=== PATIENT | female | born 1990 | race Caucasian/White ===

== ENCOUNTER 2017-02-27 03:53 | Emergency (ER) | payer MEDICAID ==
[~2017-02-27] VITALS: Ht 157.5 cm; Wt 65.8 kg
[~2017-02-27 03:53] MED LIST: AZIT250T94 PO; CETI10CA PO; TRIA15CR55 TOP
[2017-02-27 04:00] VITALS: Ht 157.5 cm; Wt 65.8 kg
--- NOTE | 2017-02-27 04:49 | ERD ---
ER Documentation Chief Complaint Chief Complaint pt fell this AM coming home from a green party- skin abrasion on mikey legs; R arm HPI 26-year-old female presents here to emergency department for complaints of right elbow pain, right knee pain, right buttock pain after falling out, patient was burning, went out of the bar, dizzy and fell landed on the right buttock right elbow and right knee. Patient's complaint of pain throbbing pain, 6/10 scale, not better or worse with anything. Patient did not take any medications to help with symptoms. Patient is drinking alcohol tonight. ROS All systems reviewed and are negative except as per history of present illness. Medications Home Meds Active Scripts Azithromycin* (Zithromax*) 250 Mg Tablet, 250 MG PO .ZPACK DIRECTED, #6 TAB TAKE 500 MG (2 TABS) THE FIRST DAY THEN 250 MG (1 TAB) DAYS 2-5 Prov:DIANA CULLEN MD 11/06/15 Cetirizine Hcl* (Zyrtec*) 10 Mg Capsule, 10 MG PO DAILY for 14 Days, TAB Prov:DIANA CULLEN MD 11/06/15 Triamcinolone Acetonide (Triamcinolone Acetonide) 0.1% - 15 Gm Cream.gm., 1 APPLIC TOP QID for 10 Days, #1 TUB Prov:DIANA CULLEN MD 11/06/15 Allergies Allergies: Coded Allergies: No Known Allergy (Unverified , 12/08/13) PMhx/Soc History of Surgery: Yes (appendix) Anesthesia Reaction: No Hx Neurological Disorder: No Hx Respiratory Disorders: No Hx Cardiac Disorders: No Hx Psychiatric Problems: No Hx Miscellaneous Medical Probl: No Hx Alcohol Use: No Hx Substance Use: No Hx Tobacco Use: Yes (1 cig/day) Smoking Status: Current some day smoker FmHx Family History: No coronary disease, No diabetes, No other Physical Exam Vitals Vital Signs Date Time Temp Pulse Resp B/P Pulse Ox O2 Delivery O2 Flow Rate FiO2 02/27/17 04:00 100.1 97 20 118/83 98 Physical Exam GENERAL: The patient is well developed and appropriate for usual state of health, in no apparent distress. CHEST: Clear to auscultation bilaterally. There are no rales, wheezes or rhonchi. HEART: Regular rate and rhythm. No murmurs, clicks, rubs or gallops. No S3 or S4. ABDOMEN: Soft, nontender and nondistended. Good bowel sounds. No rebound or guarding. No gross peritonitis. No gross organomegaly or masses. No Ordonez sign or McBurney point tenderness. BACK: No midline or flank tenderness. EXTREMITIES: Tenderness on palpation on the right elbow, noted effusion ecchymosis, limited movement of the right elbow because of pain and swelling. Mild deformity noted. Noted right knee with abrasion and ecchymosis, able to do full range of motion without any restriction. Noted abrasion and ecchymosis on the right buttock area, able to do full range of motion of the right hip without any restriction. Equal pulses bilaterally. There is no peripheral clubbing, cyanosis or edema. No focal swelling or erythema. Full range of motion. Grossly neurovascularly intact. NEURO: Alert and oriented. Cranial nerves 2-12 intact. Motor strength in all 4 extremities with 5/5 strength. Sensation grossly intact. Normal speech and gait. SKIN: There is no apparent rash or petechia. The skin is warm and dry. HEMATOLOGIC AND LYMPHATIC: There is no evidence of excessive bruising or lymphedema. No gross cervical, axillary, or inguinal lymphadenopathy. Results 24 hrs PROCEDURE: XR Elbow. CLINICAL INDICATION: Right elbow pain following injury TECHNIQUE: 3 views of the right elbow are available for review COMPARISON: None available FINDINGS: The osseous structures demonstrate normal alignment and mineralization. No acute fracture or dislocation is identified. There is no posterior fat pad sign identified to indicate presence of a joint effusion. There is diffuse soft tissue edema and small focus of subcutaneous emphysema along the lateral margin of the elbow. IMPRESSION: 1. No acute fracture identified. 2. Diffuse soft tissue edema and small focus of subcutaneous emphysema along the lateral margin of the elbow. RPTAT: HH .Mel Cameron MD, Date Time Electronically viewed and signed by .Mel Cameron MD, on 02/27/2017 05 :21 .G/ CC: YANI OAKLEY [employer] PROCEDURE: XR Hip. CLINICAL INDICATION: Right hip pain status post fall. TECHNIQUE: AP and frog lateral views of the right hip were performed. COMPARISON: Left hip x-rays performed concurrently FINDINGS: The osseous structures demonstrate normal alignment and mineralization. No acute fracture is identified. The femoral head demonstrates a normal, round contour with adequate coverage by the acetabulum. The physis is normal in appearance. There is no evidence of slippage of the femoral head. The right sacroiliac joint is grossly unremarkable. An IUD is seen within the pelvis. IMPRESSION: Unremarkable right hip x-rays series. RPTAT: HH .Mel Cameron MD, MD Date Time Electronically viewed and signed by .Mel Cameron MD, on 02/27/2017 05 :23 .G/ PROCEDURE: XR Knee. CLINICAL INDICATION: Fall. Knee pain. TECHNIQUE: 3 views of the right knee were obtained including AP, cross-table lateral, and tunnel views. The images reviewed on a PACS workstation. COMPARISON: None. FINDINGS: No fracture, dislocation, and/or effusion is seen. No significant degenerative change. No definite abnormal calcifications or other soft tissue abnormality. IMPRESSION: No definite acute bony abnormality. RPTAT: [facility] Physician Sid Date Time Electronically viewed and signed by Physician Sid on 02/27/2017 05 :23 LE/ CC: YANI OAKLEY [employer] Procedures/[facility] Medical Decision Making: Patient's pain is most likely consistent with a right knee contusion elbow contusion in the right hip contusion. There is no suspicion for neurovascular compromise. Patient has intact sensation and circulation of the affected extremity. There is low suspicion for septic arthritis. Patient does not have any fever. Radiology exams of the affected area does not show any fracture or dislocation. Disposition: Home. Patient is given prescription for ibuprofen for pain, [place] for severe pain. Patient was advised to elevate the affected area and apply ice on affected area. Patient was advised that if symptoms are worse, numbness, tingling, high fever, unable to move joint, worsening symptoms, to return to emergency department immediately. Otherwise, patient is advised to follow up with the primary care doctor in 5-7 days for reevaluation of symptoms. Disclaimer: Inadvertent spelling and grammatical errors are likely due to EHR/ dictation software use and do not reflect on the overall quality of patient care. Also, please note that the electronic time recorded on this note does not necessarily reflect the actual time of the patient encounter. Departure Diagnosis: Primary Impression: Contusion of hip Encounter type: initial encounter Laterality: right Qualified Code: S70.01XA - Contusion of right hip, initial encounter Additional Impressions: Knee contusion Encounter type: initial encounter Laterality: right Qualified Code: S80.01XA - Contusion of right knee, initial encounter Elbow contusion Encounter type: initial encounter Laterality: right Qualified Code: S50.01XA - Contusion of right elbow, initial encounter Condition: Stable Patient Instructions: Contusion, Elbow, Hip Contusion, Knee Pain, Uncertain Cause Additional Instructions: Patient is given prescription for ibuprofen for pain, [place] for severe pain. Patient was advised to elevate the affected area and apply ice on affected area. Patient was advised that if symptoms are worse, numbness, tingling, high fever, unable to move joint, worsening symptoms, to return to emergency department immediately. Otherwise, patient is advised to follow up with the primary care doctor in 5-7 days for reevaluation of symptoms. YANI OAKLEY NP Feb 27, 2017 04:49
--- NOTE | 2017-02-27 05:21 | RADRPT ---
PROCEDURE: XR Elbow. CLINICAL INDICATION: Right elbow pain following injury TECHNIQUE: 3 views of the right elbow are available for review COMPARISON: None available FINDINGS: The osseous structures demonstrate normal alignment and mineralization. No acute fracture or disloc ation is identified. There is no posterior fat pad sign identified to indicate presence of a joint effusion. There is diffuse soft tissue edema and small focus of subcutaneous emphysema along the lat eral margin of the elbow. IMPRESSION: 1. No acute fracture identified. 2. Diffuse soft tissue edema and small focus of subcutaneous emphysema along the lateral margin of the elbow. RPTAT: HH .Mel Cameron MD, MD Date Time Electronically viewed and signed by .Mel Cameron MD, MD on 02/27/2017 05:21 .G/
--- NOTE | 2017-02-27 05:23 | RADRPT ---
PROCEDURE: XR Hip. CLINICAL INDICATION: Right hip pain status post fall. TECHNIQUE: AP and frog lateral views of the right hip were performed. COMPARISON: Left hip x-rays performed concurrently FINDINGS: The osseous structures demonstrate normal alignment and mineralization. No acute fracture is identi fied. The femoral head demonstrates a normal, round contour with adequate coverage by the acetabulum . The physis is normal in appearance. There is no evidence of slippage of the femoral head. The [facility] sacroiliac joint is grossly unremarkable. An IUD is seen within the pelvis. IMPRESSION: Unremarkable right hip x-rays series. RPTAT: HH .Mel Cameron MD, MD Date Time Electronically viewed and signed by .Mel Cameron MD, on 02/27/2017 05:23 .G/
--- NOTE | 2017-02-27 05:23 | RADRPT ---
PROCEDURE: XR Knee. CLINICAL INDICATION: Fall. Knee pain. TECHNIQUE: 3 views of the right knee were obtained including AP, cross-table lateral, and tunnel v iews. The images reviewed on a PACS workstation. COMPARISON: None. FINDINGS: No fracture, dislocation, and/or effusion is seen. No significant degenerative change. No definite abnormal calcifications or other soft tissue abnormality. IMPRESSION: No definite acute bony abnormality. RPTAT: [facility] Physician Sid Date Time Electronically viewed and signed by Physician Sid on 02/27/2017 05:23 LE/
[2017-02-27] MEDS ORDERED: IBUP-1542 PO (05:31)
[2017-02-27] MEDS ORDERED: HYDR-906 PO (05:31)
[2017-02-27 05:38] VITALS: BP 108/66; PULSE 85; RESP 17; TEMP 98.2
== END 2017-02-27 05:38 | disposition home or self-care (01) ==
LOC: FTE 03:53
DX: S70.01XA Contusion of right hip, initial encounter (principal); S80.01XA Contusion of right knee, initial encounter; S50.01XA Contusion of right elbow, initial encounter; F17.210 Nicotine dependence, cigarettes, uncomplicated; W18.39XA Other fall on same level, initial encounter; Y92.9 Unspecified place or not applicable
CPT/HCPCS: 73080; 73510; 73562; Z7502